=== PATIENT | male | born 1995 | race Caucasian/White ===

== ENCOUNTER 2018-04-15 08:02 | Emergency (ER) | payer SELFPAY | END 2018-04-15 08:40 | disposition home or self-care (01) | LOC: FTE 08:02 | DX: S21.112A Laceration without foreign body of left front wall of thorax without penetration into thoracic cavity, initial encounter (principal); W26.8XXA Contact with other sharp object(s), not elsewhere classified, initial encounter; Y92.89 Other specified places as the place of occurrence of the external cause | CPT/HCPCS: 99283 ==

== ENCOUNTER 2018-04-19 06:32 | Emergency (ER) | payer SELFPAY ==
[2018-04-19] MEDS: CEPHALEXIN 500 MG CAP PO (07:19)
[2018-04-19] MEDS: BACITRACIN 0.9 GM OINT TOP (07:37)
== END 2018-04-19 07:50 | disposition home or self-care (01) ==
LOC: FTE 06:32
DX: S21.112A Laceration without foreign body of left front wall of thorax without penetration into thoracic cavity, initial encounter (principal); F17.210 Nicotine dependence, cigarettes, uncomplicated; T81.30XA Disruption of wound, unspecified, initial encounter; X58.XXXA Exposure to other specified factors, initial encounter; Y69 Unspecified misadventure during surgical and medical care; Y92.9 Unspecified place or not applicable
CPT/HCPCS: 99283

== ENCOUNTER 2018-04-21 15:41 | Emergency (ER) | payer SELFPAY | END 2018-04-21 19:47 | disposition home or self-care (01) | LOC: FTE 15:41 | DX: Z48.01 Encounter for change or removal of surgical wound dressing (principal) | CPT/HCPCS: 99281 ==